=== PATIENT | female | born 1985 | race American Indian/Alaskan Native ===

== ENCOUNTER 2018-06-10 15:47 | Emergency (ER) | payer OTHER ==
--- NOTE | 2018-06-10 15:59 | Emergency Department Report ---
Blank Doc - Documentation Documentation: This is a 33-year-old female that presents with right 5th finger parenchyma. This initial assessment/diagnostic orders/clinical plan/treatment(s) is/are subject to change based on patient's health status, clinical progression and re- assessment by fellow clinical providers in the ED. Further treatment and workup at subsequent clinical providers discretion. Patient/guardians urged not to elope from the ED as their condition may be serious if not clinically assessed and managed. Initial orders include: 1- Patient sent to [facility] for further evaluation and treatment
[2018-06-10] MEDS ORDERED: XYLOCAINE 1% MPF 5 mL INFILTRATI ONE (21:13)
--- NOTE | 2018-06-10 21:13 | Emergency Department Report ---
ED Extremity Problem HPI - General Chief complaint: Extremity Problem,Nontraumatic Stated complaint: RT PINKY FINGER INJURY/PAIN Time Seen by Provider: 06/10/18 15:58 Source: patient Mode of arrival: Ambulatory Limitations: No Limitations - History of Present Illness Initial comments: Pt is a 33 yo female who presents to the ED with c/o erythema and edema surrounding the right pinky fingernail that began a week ago. She states she noticed it after getting fake nails removed. She denies bitting the fingernails. She has never had this before. She denies any fever. The patient has no PMHx or any daily medications. Pt denies any drug allergies. Severity scale (0 -10): 10 - Related Data Home Medications Medication Instructions Recorded Confirmed Last Taken Zantac 150 MG TAB 1 tab PO BID PRN 08/10/15 10/28/15 Unknown Sucralfate 1 gram PO Q12HR PRN 10/28/15 Unknown Previous Rx's Medication Instructions Recorded Last Taken Type Cephalexin [Keflex] 500 mg PO BID #20 capsule 02/06/18 Unknown Rx Allergies Allergy/AdvReac Type Severity Reaction Status Date / Time No Known Allergies Allergy Verified 06/10/18 15:49 ED Review of Systems ROS: Stated complaint: RT PINKY FINGER INJURY/PAIN Other details as noted in HPI Comment: All other systems reviewed and negative ED Past Medical Hx - Past Medical History Previous Medical History?: Yes Additional medical history: Gallbladder disease - Surgical History Additional Surgical History: c/s x 1 - Social History Smoking Status: Never Smoker Substance Use Type: None - Medications Home Medications: Home Medications Medication Instructions Recorded Confirmed Last Taken Type Zantac 150 MG TAB 1 tab PO BID PRN 08/10/15 10/28/15 Unknown History Sucralfate 1 gram PO Q12HR PRN 10/28/15 Unknown History Cephalexin [Keflex] 500 mg PO BID #20 capsule 02/06/18 Unknown Rx ED Physical Exam - General Limitations: No Limitations General appearance: alert, in no apparent distress - Head Head exam: Present: atraumatic, normocephalic - Eye Eye exam: Present: normal appearance - ENT ENT exam: Present: mucous membranes moist - Neurological Exam Neurological exam: Present: alert, oriented X3 - Psychiatric Psychiatric exam: Present: normal affect, normal mood - Skin Skin exam: Present: warm, dry, other (edema and erythema localized surrounding the right pinky finger nail, FROM of the right pinky, neurovascularly intact) ED Course Vital Signs 06/10/18 15:59 Temperature 98 F Pulse Rate 98 H Respiratory 18 Rate Blood Pressure 132/83 O2 Sat by Pulse 100 Oximetry - I & D Right Finger Type of Procedure: Simple Site: right pinky finger paronychia Blade Size: 11 I & D Procedure: betadine prep, sterile drapes applied, sterile dressing applied Progress: pt prepped with betadine and sterile drapes used. A digital block was performed with 3 cc of 2% lidocaine. A 0.5 cm incision was made and small amount of purulent drainage expressed. Sterile dressing applied. Pt tolerated well, no complications. bleeding was controlled. ED Medical Decision Making - Medical Decision Making Pt is a 33 yo female who presents to the ED with c/o erythema and edema surrounding the right pinky fingernail that began a week ago. She states she noticed it after getting fake nails removed. She denies bitting the fingernails. She has never had this before. She denies any fever. The patient has no PMHx or any daily medications. Pt denies any drug allergies. Pt examination consistent with a small paronychia of the right pinky finger. I&D performed per procedure note and small amount of purulent drainage expressed. Advised pt to follow up with PCP in the next 2-3 days. discussed with pt to keep area clean and dry. Do not get in bath tub, hot tub, pool, or immerse in water. Return to the emergency room for any new or worsening symptoms. Discussed with pt to look out for signs of worsening infection and described to patient. Pt verbalized understanding. Critical care attestation.: If time is entered above; I have spent that time in minutes in the direct care of this critically ill patient, excluding procedure time. ED Disposition Clinical Impression: Paronychia Disposition: DC-01 TO HOME OR SELFCARE Is pt being admited?: No Does the pt Need Aspirin: No Condition: Stable Instructions: Paronychia (ED) Additional Instructions: Please follow up with primary care doctor in the next 2-3 days. Given list of community resources. Keep area clean and dry. Do not get in bath tub, hot tub, pool, or immerse in water. Return to the emergency room for any new or worsening symptoms as discussed. Referrals: JANAE BURROWS MD [Primary Care Provider] - 2-3 Days Time of Disposition: 21:45 Print Language: COMORAN
[2018-06-11 01:59] VITALS: BP 112/85
== END 2018-06-10 22:25 | disposition home or self-care (01) ==
LOC: ED 15:47
DX: L03.011 Cellulitis of right finger (principal)

== ENCOUNTER 2019-02-24 22:10 | Emergency (ER) | payer SELFPAY | END 2019-02-24 23:05 | LOC: ED 22:10 | DX: R22.0 Localized swelling, mass and lump, head (principal); Z53.21 Procedure and treatment not carried out due to patient leaving prior to being seen by health care provider ==